=== PATIENT | female | born 1970 | race Caucasian/White ===

== ENCOUNTER 2024-09-12 13:07 | Inpatient (IN) | payer OTHER, SELFPAY ==
[2024-09-12] VITALS (59 sets, daily range): BP systolic 84–135; BP diastolic 38–87; BMI 40.4
[2024-09-12] MEDS: NITROGLYCERIN PREMIX 250 IV (10:19)
[2024-09-12 10:23] LABS: % Basophils 0.7 % (0-2); % Immature Granulocytes 0.4 % (0-0.5); % Monocytes 11.4 % (1.7-9.3); % Neutrophils 63.5 % (42.2-75.2); Absolute Eosinophils 0.2 10^3/uL (0-0.7); Absolute Lymphocytes 0.9 10^3/uL (1.2-3.4); Absolute Monocytes 0.5 10^3/uL (0.1-0.6); Absolute Neutrophils 2.9 10^3/uL (1.4-6.5); Hematocrit 36.2 % (37.0-47.0); Hemoglobin 11.9 g/dL (12.0-16.0); Mean Corp Hgb Conc. 32.9 g/dL (33.0-37.0); Mean Corpuscular Volume 88.3 fL (81.0-99.0); Mean Platelet Volume 10.4 fL (7.4-10.4); Nucleated Red Blood Cells % 0 %; Platelet Count 130 10^3/uL (130-400); Red Cell Dist. Width 14.2 % (11.5-14.5); White Blood Cell Count 4.6 10^3/uL (4.8-10.8)
--- NOTE | 2024-09-12 10:27 | ED.GENMED ---
History of Present Illness
General
Chief Complaint: Chest Pain
Source: patient
Time Seen by Provider: 09/12/24 09:58
History of Present Illness
History of Present Illness:
53-year-old female presents to the emergency room complaining of chest pain. Patient was having a stress test performed in [place] with Dr. Erickson, [facility]. The stress test was ordered because the patient has been having
chest pain which occurs both with exertion and without exertion. Episodes are described as a heaviness or tightness and lasted about 5 minutes. Patient received some sort of injection and waited 45 minutes at which point she began the first stage
of her stress test. During the first stage she began having severe chest pressure. The test was discontinued. Patient was given 4 baby aspirin. 911 was called. Patient also received 3 sublingual nitro en route. She does not believe they helped
her chest pain. She currently rates it a 9-10 out of 10. The pain exists in her center chest and radiates to her neck. She feels short of breath. No nausea. Patient denies any previous cardiac issues. She has a history of A-fib but does not
take any oral anticoagulants.
Phy Exam
Physical Exam
Physical Exam:
General: Awake, Alert, Oriented X3. Appears uncomfortable
Vitals: unremarkable
Head: Atraumatic
Eyes: Pupils equal, EOMI
Throat: Airway intact, no exudates
Neck: Trachea midline
Lungs: Crackles bilateral lower lung field
Heart: Regular rate, no murmurs
Abd: Soft, Nontender, No pulsatile mass
Neuro: Nonfocal
Skin: Warm, dry, no rash
Extremities: pulses equal b/l, trace edema
Scores
Heart Score for Chest Pain Patients
STEMI patient?: No
History: Moderately Suspicious
ECG: Nonspecific Repolarization
Age: >45 - <65 years
Risk Factors: 1 or 2 Risk Factors
Troponin: </= Normal Limit
Heart Score for Chest Pain Patients: 4
Heart Score Risk: 20.3% MACE over next 6 weeks
Course
Orders/Labs/Results
Orders:
Orders
09/12/24
DH LUMASON 5mL Routine
09/12/24 09:56
EKG [Electrocardiogram (*1)] Urgent
Reason for Study: Chest Pain
EKG- Treatment ONCE
09/12/24 10:02
Cardiac Monitoring- Treatment ONCE
IV Insert/Care/Rem.- Treatment PRN
O2 Therapy [RESP] Urgent
Titrate/Wean O2 to maintain O2 sat greater than (%): 90
Special Instructions: Maintain sats >/=90%
Pulse Ox/spot Check [RESP] Urgent
Quantity: 1
Special Instructions: ON ROOM AIR
09/12/24 10:07
Nitroglycerin 100 mg/250 ml [Nitroglycerin Premix] 100 mg in 250 ml .ROUTE .STK-MED
Nitroglycerin Sublingual [Nitrostat (Sublingual)] 0.4 mg .ROUTE .STK-MED ONE
09/12/24 10:10
Complete Blood Count/With Diff Urgent
Comprehensive Metabolic Panel Urgent
NT-proBNP Urgent
Comment: ADD ON TO LABS
Troponin I Urgent
09/12/24 10:12
PT/INR [Prothrombin Time] Urgent
PTT Urgent
09/12/24 10:18
Nitroglycerin 100 mg/250 ml [Nitroglycerin Premix] 100 mg in 250 ml IV NOW
Initial dose in mcg/min, then titrate:: 20
Titrate to keep:: Chest Pain Free
Titrate by mcg/min:: 5 mcg/min, may increase by 10 mcg/min if dose > 20 mcg/min
Frequency of titrations (minutes):: every 3-5 minutes
Maximum dose in mcg/min:: 200
Begin to taper infusion when:: Remained at goal for 2hrs
Taper by mcg/min:: 5 mcg/min
Frequency of taper (minutes) if patient maintains goal:: 30
Taper to off?: Yes
If infusion off & no longer maintaining goal:: Contact Provider
09/12/24 10:19
CR Chest Portable - 1 View Urgent
Comment:
Reason For Exam: chest pain
Reason Study Needs to be Portable: Patient Unstable
09/12/24 10:21
Electrocardiogram (*1) Urgent
Reason for Study: Chest Pain
EKG- Treatment ONCE
09/12/24 10:25
Furosemide [Lasix] 40 mg IV NOW STA
09/12/24 10:26
Add On- LAB Stat
Tests Added?: BNP
09/12/24 10:34
Morphine Sulfate 4 mg IV NOW STA
09/12/24 10:42
Echo 2D MMode Color/Doppler Urgent
Reason for Study: CP
09/12/24 12:37
Morphine Sulfate 4 mg IV NOW STA
09/12/24 12:46
Admit/Transfer Patient As Directed
Co-Sign Provider:
Level of Care: Inpatient admission
Assign to:: IVU
Physician / Group: joseph
Diagnosis: unstable angina
Reason for Hospitalization: unstable angina
Expected length of stay greater than two midnights?: Yes
ELOS- Estimated Length of Stay in days: 2
I certify the patient meets the requirements for IP care: Yes
Code Status As Directed
Resuscitation Status: Full Code
PRN Pain Medication Management As Directed
May give lesser potent ordered pain med per pt: Yes
preference::
Protocol:: Medication orders for pain may be administered in a
manner that supports deferring to patient preference
when the pt is:
- Requesting an ordered lesser potent pain medication.
Least to most potent pain medications are defined
as: acetaminophen < NSAID < tramadol < opioids
(morphine, oxycodone, hydromorphone).
- Requesting a lesser dose of the same medication IF
ORDERED.
- Requesting a less intrusive route of administration
if both routes are prescribed by the provider (PO <
IV).
09/12/24 12:54
Ondansetron Injectable [Zofran] 4 mg .ROUTE .STK-MED ONE
09/12/24 12:56
Ondansetron Injectable [Zofran] 4 mg IV NOW STA
09/12/24 13:05
Troponin I Urgent
Abnormal Lab Results
09/12/24 09/12/24
10:10 10:12
WBC 4.6 L 10^3/uL
(4.8-10.8)
RBC 4.10 L 10^6/uL
(4.20-5.40)
Hgb 11.9 L g/dL
(12.0-16.0)
Hct 36.2 L %
(37.0-47.0)
MCHC 32.9 L g/dL
(33.0-37.0)
Absolute Lymphs (auto) 0.9 L 10^3/uL
(1.2-3.4)
Lymphocytes % 19.0 L %
(20.5-51.1)
Monocytes % 11.4 H %
(1.7-9.3)
PT 14.9 H Sec
(11.4-14.6)
BUN 18 H mg/dl
(7-17)
Glucose 118 H mg/dl
(70-99)
AST 39 H U/L
(14-36)
09/12/24 10:10
09/12/24 10:10
Vital Signs
Initial and Last Documented VS:
Initial Vital Signs
BP
111/82
09/12/24 09:57
Last Documented Vital Signs
Temp Pulse Resp BP Pulse Ox
97.8 F 92 27 100/58 93
09/12/24 10:16 09/12/24 11:32 09/12/24 11:30 09/12/24 11:30 09/12/24 11:25
MDM/Problems Addressed
Differential Diagnosis Includes:
Acute coronary syndrome, pericarditis, congestive heart failure, musculoskeletal pain, dissection
MDM/Problems Addressed:
Patient presents to the emergency room from what sound like an outpatient office at [facility] the patient was having a stress test. During the initial exercise portion the stress test she began to have chest pain. She had no relief with
sublingual nitro. An EKG for the paramedics did not show any acute ischemic changes. Repeat EKGs here remain unchanged. IV nitro infusion initiated. Patient has already received baby aspirin prehospital. Patient also received some morphine for
analgesia. Portable chest x-ray appears to have changes consistent with pulmonary edema. I was able to obtain a CT report from a recent hospital visit at [facility] emergency room where she was evaluated for similar symptoms. CT angiogram of
the chest was obtained at that time which did not show any evidence for PE or dissection. Initial troponin is normal (less than 0.012 ng). Shortly after patient arrived I did contact cardiology given her persistent chest pain. Debra Lujan and
Radha came and evaluated the patient. They ordered a stat echo. I did speak to the patient's manager terminal Dr. Erickson from [facility]. He was not present for the stress test but understands that the patient had no ischemic changes on
the surveillance system monitor during the exercise portion of her test. No images were taken. He believes the patient would benefit from a right and left heart catheterization. I did communicate this as well as Dr. Erickson's cell phone number to the
cardiology team. Patient will be admitted to the hospitalist service. Pain has not been changed with the IV nitro but IV morphine has taken the edge off.
*Radiology
Radiology exam reviewed: preliminary read by ED provider (Pulmonary edema, left pleural effusion)
*Pulse Oximetry
Patient hypoxic: no
*EKG
Interpreted by ED Provider?: Yes
Comparison EKG: no comparison EKG present
Heart Rate: 76
Rate: normal
Rhythm: sinus
[place]: normal axis
Interval: first degree heart block
QRS Pattern: normal QRS
Ischemia: non-specific ST changes
*Flyer Repairer Interpretation
Rate: normal
Interpretation: normal
Rhythm: sinus
*Critical Care Note
Total Time (30-74mins, 75-104mins- exclusive of procedures): 44 min
comment:
Critical care statement: A total of 44 minutes of critical care time was provided for this patient. This includes management of unstable vital signs, evaluation of the patient at bedside, reviewing the patient's pertinent medical records, discussion
with consultants, review of old EKGs and review of pertinent medical records. This time with separate from time utilized to perform the aforementioned documented procedures
ED Attending Note
-
Portions of this chart may have been created with voice recognition software.� Occasional wrong word or��sound alike� substitutions may have occurred due to the inherent limitations of voice recognition software.
Discharge Plan
Departure
Patient Disposition: Admit
Date of Disposition: 09/12/24
Time of Disposition: 12:36
Admit to: IVU
Presentation/result/management discussed w/ accepting MD/DO: Hospitalist
Condition: Serious
Discharge Problem:
Chest pain
Interventions
Interventions:
*Risk Screen - Suicide Last Done: 09/12/24 10:16
*General Assessment Last Done: 09/12/24 10:17
*Neglect/Abuse Screening Last Done: 09/12/24 10:16
*ED- Fall Risk Assessment Last Done: 09/12/24 10:33
*ED COVID-19 Vaccine History Last Done: 09/12/24 10:16
ED- Cardiac Assessment Last Done: 09/12/24 10:15
[2024-09-12] MEDS: LASIX 40 MG IV (10:28)
[2024-09-12 10:36] LABS: ALT (SGPT) 32 U/L (0-35); AST (SGOT) 39 U/L (14-36); Albumin 3.9 g/dl (3.5-5.0); Alkaline Phosphatase 116 U/L (38-126); Blood Urea Nitrogen 18 mg/dl (7-17); Calcium 9.6 mg/dl (8.4-10.2); Carbon Dioxide 30 mmol/L (22-30); Chloride 102 mmol/L (98-107); Estimated Creatinine Clearance 102 ml/min; Glucose 118 mg/dl (70-99); Potassium 4.5 mmol/L (3.5-5.1); Sodium 141 mmol/L (135-145); Total Bilirubin 0.8 mg/dl (0.2-1.3); Total Protein 6.9 g/dl (6.3-8.2); eGFR > 60.00
[2024-09-12 10:40] LABS: INR 1.11; PT 14.9 Sec (11.4-14.6)
[2024-09-12 10:41] LABS: APTT 26.2 Sec (23.4-35.0)
[2024-09-12 10:47] LABS: Troponin I < 0.012 ng/ml
[2024-09-12] MEDS: MORPHINE SULFATE 4 MG IV ×2 (10:48→13:03)
[2024-09-12 11:15] LABS: NT-proBNP 712 pg/ml
--- NOTE | 2024-09-12 11:31 | CON.CAR ---
Addendum entered and electronically signed by J Luis Samuels MD 09/12/24 15:23:
I saw and examined the patient.
The Events Associate's note was reviewed and I agree with the note.
Comment: Briefly, 53-year-old woman who is BIBEMS after developing chest discomfort during an exercise stress test
Patient recently evaluated at [facility] for chest discomfort approximately 1 week ago, ruled out with normal troponin and was discharged home
Followed up with her primary internet marketing manager Dr. Erickson at [facility] and he arranged for exercise stress test which was performed this morning at an outpatient facility
She unfortunately developed 10 out of 10 chest discomfort while on the treadmill and was referred for evaluation in the emergency department
On presentation here she was treated with sublingual as well as IV nitro and IV morphine but was still reporting significant chest discomfort
ECGs here were not overtly ischemic
Troponin was initially undetectable and up trended to 0.025
Transthoracic echocardiogram with normal LV function and no obvious segmental wall motion abnormalities
Agree with continuing medical management with aspirin/statin/beta-shanon
We will arrange for invasive coronary angiography to assess for obstructive coronary disease as a cause of her symptoms
Chest x-ray with likely pleural effusion and low lung volumes. proBNP was not significantly elevated at 712. However it is possible there is a component of CHF contributing to her symptoms. Received IV Lasix x 1
Case discussed with ED attending
Addendum entered and electronically signed by Debra Lujan PA-C 09/12/24 12:09:
Outpatient med list:
Flecainide 50 mg every 12 hours
Vitamin B complex unknown dose daily
Singulair 10 mg daily
Levothyroxine 175 mcg daily
Kirti 180 mg daily
Flonase nasal spray 50 mcg/inhaled spray 1 spray intranasal once a day
Atenolol 50 mg twice daily
Original Note:
Consultation
Consultation Request
Date/Time Consultation Requested: 09/12/24
Date/Time Consultation Performed: 09/12/24
Requesting Provider: Dr. Vera
Performing Provider: Dr. Samuels
Reason for Consultation: Chest pain
Medical History
-
History of Present Illness:
Patient came to [facility] from [facility] with chest pain during stress test and cardiology is consulted for ongoing chest pain. Patient follows with Dr. Erickson at [facility] for h/o Afib. patient reports Afib about once a month and that she takes
flecainide and atenolol, reportedly Afib burden was worse prior to flecainide and so monthly breakthroughs are considered a success for patient. Patient is not chronically on OAC by her choice for h/o anemia. Patient does not recall previous stress
test. Patient started with chest pain, dizziness and SOB a week ago and was evaluated at [facility]. At [facility] the patient had an echo as noted above. Troponin T was 7 with normal being less than 19. D-dimer was markedly elevated, but patient thinks she had
a CT chest that was normal. Patient had MRI brain that was also normal. Patient was d/c'd to home and saw Dr. Erickson yesterday and was set up for exercise mibi today. Patient completed the 1st stage of Jose Enrique protocol and when the speed and incline
started to increase she had chest pain and SOB. Exercise was stopped and no reported ECG changes. Patient was given NTG SL x2 without improvement and 911 was called. EMS brought patient to [facility] and patient was started on Nitro gtt at 20 mcg and is
now up to 40 mcg due to ongoing pain. Patient was given morphine 4 mg IV x1 and felt a cabrales, but no pain relief. ECG without acute ischemic change. Initial Troponin undetectable. CXR concerning for possible acute HF and patient given Lasix 40 mg IV
x1. Ongoing pain 02/05, but able to sit still for echo.
PMH:
Paroxysmal Afib
Chronic flecainide therapy
Not chronically anticoagulated by patient choice
h/o breast cancer with B/L mastectomy and reconstruction followed by radiation and chemotherapy (Taxol and Abraxane) at [facility] 2021
Hyperlipidemia
Hypothyroid
RSD
Past Medical History
Past Medical History: Other (in HPI)
Past Surgical History: Gynecological (B/L mastectomy and reconstruction 01/2022, [place], B/L tubal)
Social History
Tobacco: Non-Smoker
Alcohol: Occasional
Drug: None
Personal:
Living: With Family
Family History
Family History: CAD (father with HOCM) and Cancer (grandfather with rectal cancer)
Allergies / Home Medications
Allergy/AdvReac Type Severity Reaction Status Date / Time
Sulfa (Sulfonamide Allergy Unknown Verified 09/12/24 09:58
Antibiotics)
�Medication �Instructions �Recorded �Confirmed �Type
escitalopram oxalate 20 mg tablet 20 mg PO DAILY 09/12/24 09/12/24 History
(Lexapro)
Review of Systems
-
History Source: Patient
All other systems: Negative unless noted
Physical Exam
Vital Signs
Temp Pulse Resp BP Pulse Ox
97.8 F 75 15 111/65 92
09/12/24 10:16 09/12/24 10:20 09/12/24 10:20 09/12/24 10:20 09/12/24 10:32
GEN: NAD. AAOx3
HEENT: EOMI, MMM, wearing glasses
LUNGS: 1.5 L NC. Bibasilar rales. No wheeze
CV: SR on tele. Reg, S1/S2, no murmur
ABD: soft, BS+, NT, ND
EXT: No clubbing, cyanosis, lesions or edema B/L
NEURO: Gross non-focal
SKIN: Warm, dry and pink. No rash
Lab Results
09/12/24 10:10
09/12/24 10:10
Troponin I < 0.012 ng/ml 09/12/24 10:10
[id number] Pept Cancelled 09/12/24 10:25
Impression / Plan
-
PCP: Dr. Mayuri Hernandez at [facility]
Card: Dr. Erickson at [facility]
Impression:
Chest pain during stress test 09/12/24
Recent admission to [facility] for chest pain, SOB and dizziness 09/02/24
Chest pain
VAZQUEZ
Acute HFpEF
Paroxysmal Afib
Chronic flecainide therapy
Not chronically anticoagulated by patient choice
h/o breast cancer with B/L mastectomy and reconstruction followed by radiation and chemotherapy (Taxol and Abraxane) at [facility] 2021
Hyperlipidemia
Hypothyroid
RSD
FH HOCM
Echo 09/02/24: [facility] study, normal LV size and function, no WMA
Plan:
-Patient came to [facility] from [facility] with chest pain during stress test and cardiology is consulted for ongoing chest pain. Patient follows with Dr. Erickson at [facility] for h/o Afib. patient reports Afib about once a month and that she takes
flecainide and atenolol, reportedly Afib burden was worse prior to flecainide and so monthly breakthroughs are considered a success for patient. Patient is not chronically on OAC by her choice for h/o anemia. Patient does not recall previous stress
test. Patient started with chest pain, dizziness and SOB a week ago and was evaluated at [facility]. At [facility] the patient had an echo as noted above. Troponin T was 7 with normal being less than 19. D-dimer was markedly elevated, but patient thinks she had
a CT chest that was normal. Patient had MRI brain that was also normal. Patient was d/c'd to home and saw Dr. Erickson yesterday and was set up for exercise mibi today. Patient completed the 1st stage of Jose Enrique protocol and when the speed and incline
started to increase she had chest pain and SOB. Exercise was stopped and no reported ECG changes. Patient was given NTG SL x2 without improvement and 911 was called. EMS brought patient to [facility] and patient was started on Nitro gtt at 20 mcg and is
now up to 40 mcg due to ongoing pain. Patient was given morphine 4 mg IV x1 and felt a cabrales, but no pain relief. ECG without acute ischemic change. Initial Troponin undetectable. CXR concerning for possible acute HF and patient given Lasix 40 mg IV
x1. Ongoing pain 02/05, but able to sit still for echo.
-ECG reviewed by me is SR without acute ischemic changes
-Troponin undetectable despite an hour of pain.
-No change in pain with NTG SL then NTG gtt at 40 mcg. No change in pain with morphine 4 mg IV x1.
-Urgent echo ordered by me and result pending. Recent echo under similar circumstances was unremarkable.
-Patient unable to complete stress test. We reviewed that if her symptoms are cardiac then cardiac cath would be a reasonable next step. We talked about cardiac cath procedure and risks vs benefits. We also talked about possible outcomes including
CAD or possibly a finding of no obstructive CAD and that her symptoms are non-cardiac.
-Pending echo will start Heparin gtt
-Start aspirin 81 mg daily 09/13/24. Patient chewed 4 baby aspirin at stress test facility 09/12/24
-Outpatient dose of flecainide 50 mg q 12 hours should be continued
-Outpatient dose of atenolol 50 mg BID should be continued. Of note patient must be on AV ingrid shanon of some sort while taking flecainide. Do not stop atenolol.
-Patient is not on chronic OAC by choice and also that CHADS Vasc is 1.
-Check CVE
-pro-BNP 712 and she is 53, so chapa zone elevation. CXR concerning for CHF though. Patient given Lasix 40 mg IV x1 in the ER and will follow for clinical response.
--- NOTE | 2024-09-12 11:56 | W.CHA2DS2VAS ---
[id number] Score
Score
Age in Years (65=0, 65-74=1, >/=75=2): <65
Sex (Female=+1): Female
Congestive Heart Failure History (Yes=+1): No
Hypertension History (Yes=+1): No
Stroke/TIA/Thromboembolism History (Yes=+2): No
Vascular Disease History (Yes=+1): No
Diabetes Mellitus (Yes=+1): No
Score >/=2 is otherwise an anticoagulation candidate: 1
--- NOTE | 2024-09-12 12:50 | HPS.HSE ---
Addendum entered and electronically signed by Candace Xie MD 09/12/24 17:26:
Patient still with chest pain after catheterization. Nitroglycerin was stopped during procedure. Cardiology thinks noncardiac pain. Added PRN tylenol and morphine and gave dose of protonix.
Addendum entered and electronically signed by Candace Xie MD 09/12/24 13:33:
NPO past midnight.
Addendum entered and electronically signed by Candace Xie MD 09/12/24 13:17:
Echocardiogram unremarkable. Cardiology planning on catheterization tomorrow. No heparin drip unless troponins rise.
Original Note:
Family Physician
-
Family Physician: Mayuri Hernandez
Chief Complaint
-
chest pain
History of Present Illness
53-year-old female past medical history of paroxysmal atrial fibrillation, chronic HFpEF, breast cancer status post bilateral mastectomy with reconstruction followed by radiation/chemotherapy, hyperlipidemia, hypothyroidism, presenting with chest
pain. She was having stress test performed in [place] by Dr. Erickson with [facility] today because she started having chest pain, dizziness and shortness of breath during the procedure. A week ago she developed chest pain,
dizziness and shortness of breath and was evaluated at [facility]. She had an echocardiogram as well as elevated D-dimer. She thinks she had a CT chest that was normal. She also had MRI brain that was normal. She was discharged home and saw Dr. Erickson
yesterday and had an exercise stress test today. During the stress test she developed chest pain shortness of breath. She was given nitroglycerin twice without improvement 911 was called.
Chest pain is described as elephant sitting on her chest rating up to her neck. Associated shortness of breath and dizziness.
Patient follows with Dr. Cross for A-fib for which she is on flecainide and atenolol. She gets breakthrough once a month which is an improvement for her. She is not on anticoagulation due to history of anemia.
She denies any weight gain or lower extremity edema.
She drinks alcohol once a week. She denies smoking.
Her father has hypertrophic obstructive cardiomyopathy.
Medical History
Past Medical History
Past Medical History: Reports Other (paroxysmal atrial fibrillation, chronic HFpEF, breast cancer status post bilateral mastectomy with reconstruction followed by radiation/chemotherapy, hyperlipidemia, hypothyroidism)
Past Surgical History: Reports Other (gastric sleeve, tubal ligation, hysterectomy )
Social History
Tobacco: Non-smoker
Alcohol: Occasional
Drug: None
Family History
Family History: Other (see history )
Allergies / Home Medications
Allergies reflects when Allergies were last updated in [facility].
Home Medications with original date entered in [facility]
Allergy/Medication List:
Allergies
Allergy/AdvReac Type Severity Reaction Status Date / Time
Sulfa (Sulfonamide Allergy Unknown Verified 09/12/24 09:58
Antibiotics)
Home Medications
escitalopram oxalate 20 mg tablet (Lexapro) 20 mg PO DAILY 09/12/24
Review of Systems
-
History Source: Patient
A 12 point ROS was completed and negative except as noted: Yes
Constitutional: Reports No Symptoms
EENT: Reports No Symptoms
Respiratory: Reports See HPI
Cardiac: Reports See HPI
Abdomen/GI: Reports No Symptoms
: Reports No Symptoms
Musculoskeletal: Reports No Symptoms
Skin: Reports No Symptoms
Neurological: Reports No Symptoms
Endocrine: Reports No Symptoms
Hematologic/Lymphatic: Reports No Symptoms
Psych: Reports No Symptoms
Physical Exam
Vital Signs
Vital Signs
Temp Pulse Resp BP Pulse Ox
97.8 F 92 27 100/58 93
09/12/24 10:16 09/12/24 11:32 09/12/24 11:30 09/12/24 11:30 09/12/24 11:25
Physical Exam
General: Well Developed, Well Nourished and No Apparent Distress
HEENT: NormoCephalic, Moist mucous membranes and Atraumatic
Respiratory: Clear
Cardiac: S1/S2 and Regular Rhythm; No Murmur or Rub
GI: Soft, Non Tender, Non Distended and Normal Bowel Sounds; No Organomegaly
Rectal: Deferred by Provider
Musculoskeletal: No Clubbing, No Cyanosis and No Edema
Skin: No Rash
Neuro: Nonfocal/grossly intact
Laboratory Results
-
09/12/24 10:10
09/12/24 10:10
Laboratory Results
PT 14.9 Sec (11.4-14.6) H 09/12/24 10:12
INR 1.11 09/12/24 10:12
APTT 26.2 Sec (23.4-35.0) 09/12/24 10:12
Total Bilirubin 0.8 mg/dl (0.2-1.3) 09/12/24 10:10
AST 39 U/L (14-36) H 09/12/24 10:10
ALT 32 U/L (0-35) 09/12/24 10:10
Alkaline Phosphatase 116 U/L (38-126) 09/12/24 10:10
Troponin I < 0.012 ng/ml 09/12/24 10:10
Impression/Plan
-
IMPRESSION:
PLAN:
# Chest pain possibly unstable angina
- EKG shows sinus rhythm with first-degree AV block
- Troponin negative, continue to trend
-Chest x-ray shows opacification of the left base probable combination of small effusion/adjacent atelectasis/consolidation
-Cardiac BNP of 700
-Patient reportedly had CT PE while in [facility] a week ago due to elevated D-dimer and MRI brain which was negative
-Nitroglycerin drip started and morphine given
- Recent echo unremarkable, urgent echocardiogram pending here
- Check A1c and lipid panel
- Aspirin started
- Heparin drip possibly to be started based on echocardiogram
- Cardiac catheterization being considered, n.p.o. for now
Chronic HFpEF
Family history of hypertrophic obstructive cardiomyopathy in her father
- 40 IV Lasix dose given due to consideration of volume overload on chest x-ray
- Monitor response
Paroxysmal atrial fibrillation
- Continue flecainide
- Continue atenolol
- Not on anticoagulation by choice
Breast cancer status post bilateral mastectomy with reconstruction followed by radiation/chemotherapy
Hyperlipidemia
Hypothyroidism
- Continue levothyroxine
Chronic anemia
- Hemoglobin of 11.9
History of gastric sleeve
Full code
DVT prophylaxis�heparin
Cardiac diet
[2024-09-12] MEDS: ZOFRAN 4 MG IV (13:04)
[2024-09-12 13:54] LABS: Troponin I 0.025 ng/ml
--- NOTE | 2024-09-12 16:45 | ITS.CL.CATH ---
Furniture Maker - Catheterization
Cardiac Catheterization
Procedure Report:
LEFT HEART CATHETERIZATION
Date of Procedure: September 12, 2024
Referring: Dr. J Luis Samuels
PROCEDURES:
1. Left heart catheterization with coronary angiography
INDICATION: Chest pain at rest and during stress study
ACCESS: Right radial artery, 6 Luxembourg[place] sheath
HEMODYNAMICS : (mmHg)
AO (s/d) : 119/78
LV (s/d) : 117/5
LVEDP : 26
CORONARY FINDINGS
DOMINANCE: Right
LEFT MAIN: Normal
LEFT ANTERIOR DESCENDING: The LAD arises normally from the left main running in the anterior intraventricular groove. The LAD has only minor irregularities over its course
CIRCUMFLEX: The circumflex
RIGHT CORONARY ARTERY: The right coronary artery is a dominant vessel that has very mild luminal irregularities over its course.
SEDATION: 32 minutes of procedural sedation was utilized. An independent medical record consultant was present to assist with and help manage the patient's level of consciousness and physiologic status.
RADIATION SUMMARY: Fluoro Time (min): 3.5, Dose (mGy): 387, DAP (Gy.cm2) : 28.1
Closure Device: TR band
CONCLUSIONS
1. Nonobstructive coronary disease
RECOMMENDATIONS
1. Continued medical management. Trend serial troponin levels
Copy to: Dr. Moncho Erickson
--- NOTE | 2024-09-12 17:00 | PTCARENOTE ---
Pt arrived to floor on stretcher from laboratory clerk; Pressure device on R radial intact; + pulses; NSS infusing into RAC; Pt AAO x 3; Pt states she has 8/10 chest pain, but does not appear in any distress; Noted that Pt continues to fall alseep but is
easily awoken. Cards and hospitalist notified of pain - rec'd order for morphine 1mg IV. Oriented to room, call hernandez within reach. Will continue to monitor and assess.
[2024-09-12] MEDS: NSS 1000 IV (17:52)
[2024-09-12] MEDS: SINGULAIR 10 MG PO (17:52)
[2024-09-12] MEDS: PROTONIX 40 MG PO (17:52)
[2024-09-12] MEDS: MORPHINE SULFATE 1 MG IV (17:53)
[2024-09-12 19:13] LABS: Troponin I 0.017 ng/ml
[2024-09-12 19:17] LABS: HDL Cholesterol 60 mg/dl; LDL Cholesterol, Calculated 89 mg/dl; Total Cholesterol 160 mg/dl (50-199); Triglyceride 59 mg/dl (10-149); Very Low Density Lipoprotein 11 mg/dl (0-30)
[2024-09-12] MEDS: TENORMIN 50 MG PO (20:47)
[2024-09-12] MEDS: TAMBOCOR 100 MG PO (20:47)
[2024-09-12] MEDS: HEPARIN 5000 UNITS SC (20:48)
--- NOTE | 2024-09-12 23:32 | PTCARENOTE ---
assumed care of patient at the change of shift. at the bedside. questions answered. SR with a first degree on tele-60s. bp stable. assisted patient oob to the BR-steady/denies any lightheadedness/dizziness. patient appears comfortable and
sleeping intermittently. when asked about pain-patient states 6/10 L chest into Left neck; pressure like pain. states feeling short of breath at times- 'like i cant catch my breath.' 94% on 2L. trialed patient on RA- 88-93%. patient states history
of sleep apnea- does not use her device. shallow breathing. encouraged deep breathing. R radial site CDI/+ pulse. educated patient to inform RN with any changes overnight. call hernandez within reach. makes needs known.
[2024-09-13] VITALS (10 sets, daily range): BP systolic 86–126; BP diastolic 46–81; BMI 38.3
[2024-09-13 00:44] LABS: Troponin I 0.017 ng/ml
[2024-09-13] MEDS: TYLENOL 650 MG PO ×3 (02:52→22:29)
[2024-09-13] MEDS: COLACE 100 MG PO (05:20)
[2024-09-13] MEDS: SYNTHROID 150 MCG PO (05:20)
--- NOTE | 2024-09-13 05:22 | PTCARENOTE ---
patient states feeling better. intermittent chest pressure with breathing- did not need anything pain medication for cp overnight. tylenol given for generalized joint pain- baseline per patient- see JUL. SR on tele 60s. bp stable. ambulating to the
bathroom with no issues.
[2024-09-13 05:32] LABS: % Basophils 0.4 % (0-2); % Eosinophils 3.5 % (0-6); % Immature Granulocytes 0.4 % (0-0.5); % Lymphocytes 17.1 % (20.5-51.1); % Monocytes 13.4 % (1.7-9.3); % Neutrophils 65.2 % (42.2-75.2); Absolute Eosinophils 0.2 10^3/uL (0-0.7); Absolute Lymphocytes 0.8 10^3/uL (1.2-3.4); Absolute Monocytes 0.7 10^3/uL (0.1-0.6); Absolute Neutrophils 3.2 10^3/uL (1.4-6.5); Hematocrit 36.4 % (37.0-47.0); Hemoglobin 11.7 g/dL (12.0-16.0); Mean Corp Hgb Conc. 32.1 g/dL (33.0-37.0); Mean Corpuscular Hgb 28.3 pg (27.0-31.0); Mean Corpuscular Volume 87.9 fL (81.0-99.0); Mean Platelet Volume 10.2 fL (7.4-10.4); Nucleated Red Blood Cells % 0 %; Platelet Count 141 10^3/uL (130-400); Red Blood Cell Count 4.14 10^6/uL (4.20-5.40); Red Cell Dist. Width 14.3 % (11.5-14.5); White Blood Cell Count 4.9 10^3/uL (4.8-10.8)
[2024-09-13 06:00] LABS: Troponin I < 0.012 ng/ml
[2024-09-13 06:07] LABS: ALT (SGPT) 26 U/L (0-35); AST (SGOT) 35 U/L (14-36); Albumin 3.8 g/dl (3.5-5.0); Alkaline Phosphatase 110 U/L (38-126); Blood Urea Nitrogen 18 mg/dl (7-17); Carbon Dioxide 31 mmol/L (22-30); Chloride 100 mmol/L (98-107); Estimated Creatinine Clearance 89 ml/min; Glucose 103 mg/dl (70-99); Potassium 4.4 mmol/L (3.5-5.1); Sodium 140 mmol/L (135-145); Total Protein 6.6 g/dl (6.3-8.2); eGFR > 60.00
--- NOTE | 2024-09-13 08:43 | W.PN.CARDCBS ---
Addendum entered and electronically signed by Kip Hoffmann MD 09/13/24 10:49:
I saw and examined the patient.
The MANAGER VIDEO GAMES or PA's note was reviewed and I agree with the note.
Comment: General: Well developed, well nourished in NAD.
Neck: Supple, no JVD, HJR, carotids +2 B/L, no bruits bilaterally.
Heart: Non displaced PMI, RRR, no murmurs, No S3, S4, no rubs.
Lungs: Clear to auscultation bilaterally, no wheeze, rhonchi, rubs bilaterally,
normal expiratory phase.
Extremities: No clubbing, cyanosis or edema bilaterally.
Neuro: Grossly nonfocal, awake, alert and oriented x3.
Still has chest pain. Not likely cardiac. Check CT to exclude pulm embolism. Has had atrial tachycardia versus atrial flutter. Discussed with primary bargeman at [employer] [facility]. Will increase flecainide to 150 mg p.o. twice daily and start
Eliquis. She will follow-up with outpatient cardiology. Stable cardiology status for discharge today if testing can be done.
Original Note:
Today's Communication / Plan
-
Chest CTA
P.o. Lasix 20 mg daily
Increase flecainide. Follow EKG
Start Eliquis 5 mg twice daily
Discussed with primary bargeman via telephone
Impression / Plan
-
PCP: Dr. Mayuri Hernandez at [facility]
Card: Dr. Erickson at [facility]
Impression:
Chest pain during stress test 09/12/24
Recent admission to [facility] for chest pain, SOB and dizziness 09/02/24
Chest pain
VAZQUEZ
Acute HFpEF
Paroxysmal Afib/typical atrial flutter
Chronic flecainide therapy
Not chronically anticoagulated by patient choice
h/o breast cancer with B/L mastectomy and reconstruction followed by radiation and chemotherapy (Taxol and Abraxane) at [facility] 2021
Hyperlipidemia
Hypothyroid
RSD
FH HOCM
Echo 09/02/24: [facility] [place] study, normal LV size and function, no WMA
ECHO 09/12/24: Technically difficult study, EF 60%, no gross regional wall motion abnormalities, normal RV size and function, no significant valvular pathology
Plan:
- She continues with chest discomfort and dyspnea particularly with exertion
- Status post echo yesterday with normal EF and no significant valvular disease
- Cardiac catheterization with nonobstructive CAD and LVEDP of 26
- Chest x-ray also showed small left pleural effusion. Was given dose of IV Lasix yesterday. Continue to wean supplemental oxygen as able. Will start po lasix 20mg daily
- Noted to be going in and out of atrial flutter with controlled heart rates on review of telemetry overnight. Suspect this is not etiology of her pain however as she presented in sinus rhythm.
- We discussed increasing flecainide to 150 mg every 12 hours and starting anticoagulation with Eliquis 5mg BID at least for short-term given paroxysmal nature of arrhythmia at present. [id number] score of 1-2 given female, HTN
- continue OP atenolol 50mg BID
- Ongoing workup of noncardiac etiologies of chest pain and dyspnea on exertion. Pain is reproducible to some degree with palpation to L upper back area. We will plan for chest CTA today to rule out PE given history of malignancy
- Called and discussed with primary bargeman, Dr. Erickson via telephone who is in agreement with above plan. he states he will likely plan to admit her to [facility] next week for RHC if no etiology of symptoms found.
PREADMIT DATA:
-Patient came to [facility] from [facility] with chest pain during stress test and cardiology is consulted for ongoing chest pain. Patient follows with Dr. Erickson at [facility] for h/o Afib. patient reports Afib about once a month and that she takes
flecainide and atenolol, reportedly Afib burden was worse prior to flecainide and so monthly breakthroughs are considered a success for patient. Patient is not chronically on OAC by her choice for h/o anemia. Patient does not recall previous stress
test. Patient started with chest pain, dizziness and SOB a week ago and was evaluated at [facility]. At [facility] the patient had an echo as noted above. Troponin T was 7 with normal being less than 19. D-dimer was markedly elevated, but patient thinks she had
a CT chest that was normal. Patient had MRI brain that was also normal. Patient was d/c'd to home and saw Dr. Erickson yesterday and was set up for exercise mibi today. Patient completed the 1st stage of Jose Enrique protocol and when the speed and incline
started to increase she had chest pain and SOB. Exercise was stopped and no reported ECG changes. Patient was given NTG SL x2 without improvement and 911 was called. EMS brought patient to [facility] and patient was started on Nitro gtt at 20 mcg and is
now up to 40 mcg due to ongoing pain. Patient was given morphine 4 mg IV x1 and felt a cabrales, but no pain relief. ECG without acute ischemic change. Initial Troponin undetectable. CXR concerning for possible acute HF and patient given Lasix 40 mg IV
x1. Ongoing pain 02/05, but able to sit still for echo.
Progress Note - Brake Lining Maker
Subjective
Date of Service: September 13, 2024
Remains with chest discomfort/back discomfort as well as dyspnea on exertion
Objective
Labs:
09/13/24 05:12
09/13/24 05:12
Labs
Hgb 11.7 g/dL (12.0-16.0) L 09/13/24 05:12
Hct 36.4 % (37.0-47.0) L 09/13/24 05:12
Plt Count 141 10^3/uL (130-400) 09/13/24 05:12
PT 14.9 Sec (11.4-14.6) H 09/12/24 10:12
INR 1.11 09/12/24 10:12
APTT 26.2 Sec (23.4-35.0) 09/12/24 10:12
Sodium 140 mmol/L (135-145) 09/13/24 05:12
Potassium 4.4 mmol/L (3.5-5.1) 09/13/24 05:12
BUN 18 mg/dl (7-17) H 09/13/24 05:12
Creatinine 0.8 mg/dL (0.6-1.0) 09/13/24 05:12
Glucose 103 mg/dl (70-99) H 09/13/24 05:12
Troponins
09/12/24 09/12/24 09/12/24
10:10 13:05 18:37
Troponin I < 0.012 0.025 D 0.017 D
09/13/24 09/13/24
00:10 05:12
Troponin I 0.017 < 0.012 D
Vital Signs and I&O:
Vital Signs
Temp Pulse Resp BP Pulse Ox
98.4 F 65 16 100/55 96
09/13/24 02:50 09/13/24 04:00 09/13/24 02:50 09/13/24 02:51 09/13/24 02:50
Vital Signs
Temp Pulse Resp BP Pulse Ox
98.4 F 65 16 100/55 96
09/13/24 02:50 09/13/24 04:00 09/13/24 02:50 09/13/24 02:51 09/13/24 02:50
Intake & Output
09/11/24 09/12/24 09/13/24 09/14/24
07:59 07:59 07:59 07:59
Intake Total 550 / 550
Output Total 1600 / 1600
Balance -1050 / -1050
Physical Exam
Physical Exam
GEN: No distress, awake, alert, oriented x3. On supplemental oxygen
HEENT: supple, anicteric, mmm, EOMI
LUNGS: CTA bilaterally, no wheezes
CV: Irreg, S1/S2, no murmur
ABD: soft, BS+, NT/ND
EXT: No cyanosis, clubbing, edema
NEURO: Gross non-focal
SKIN: Warm, pink, dry. No rash
[2024-09-13] MEDS: ZOO CHEWS 1 TABLET PO (08:49)
[2024-09-13] MEDS: HEPARIN 5000 UNITS SC (08:49)
[2024-09-13] MEDS: VITAMIN B-12 1000 MCG PO (08:49)
[2024-09-13] MEDS: LOW STRENGTH ASPIRIN 81 MG PO (08:49)
[2024-09-13] MEDS: FEMARA 2.5 MG PO (08:49)
[2024-09-13] MEDS: LEXAPRO 20 MG PO (08:49)
[2024-09-13] MEDS: B COMPLEX w/VITAMIN C 1 CAPLET PO (08:49)
[2024-09-13] MEDS: TENORMIN 50 MG PO ×2 (08:49→19:48)
[2024-09-13] MEDS: TAMBOCOR PO (08:56)
[2024-09-13] MEDS: TAMBOCOR 150 MG PO ×2 (08:59→19:48)
--- NOTE | 2024-09-13 09:15 | PTCARENOTE ---
Pt rang call hernandez w/ complaints of chest pressure. Pt states 'it feels like an elephant is sitting on my chest.' EKG obtained- afib. VSS. Pt sating 95% on 2L O2 SHILA. Olivia HER at bedside and CT chest ordered.
[2024-09-13 09:19] LABS: Glycohemoglobin (HgbA1c) 5.9 % (4.0-5.6)
[2024-09-13] MEDS: ELIQUIS 5 MG PO ×2 (10:03→19:48)
[2024-09-13] MEDS: LASIX 20 MG PO (11:09)
--- NOTE | 2024-09-13 11:33 | CM ---
Addendum entered by Zaria Ortiz 09/13/24 12:39:
Telephone call to her insurance to check on co-pay for Eliquis 5 mg po bid. He co-pay would be $4.80 a month. She is in the Catastrophic stage of her insurances. Placed the one month free coupon in her red discharge folder. Reviewed co-pay for
Eliquis with her. She is agreeable to the co-pay.
Original Note:
Reviewed chart. Met with Mrs Selby to review discharge plans. She states prior to admission she resides with her spouse in a two story home. She states her main bedroom suite is on the first floor. She states prior to admission she was
independent with ambulation and adls. She states she does not have nay DME in the home. She states she has a prescription plan and uses [facility]. She states she has had [facility] in the past and she would be agreeable to [facility] again
if indicated. Medical work-up in progress. The discharge plan is to return home with her spouse when medically stable.
[2024-09-13] MEDS: MORPHINE SULFATE 1 MG IV (11:52)
--- NOTE | 2024-09-13 12:25 | PTCARENOTE ---
Rec'd pt from medical lab technologist. Tele- SB. HR 40-60s. B/l groin w/ fig 8 sutures; c/d/i. Activity restrictions reviewed w/ pt and verbalizes understanding. Assessment completed as documented. Oriented pt to room. Currently in bed; call david w/in reach.
--- NOTE | 2024-09-13 12:31 | W.PN.HOSP.TC ---
Today's Communication/Plan
-
Lasix
Flecainide
Eliquis Tx
Likely discharge in AM
Assessment / Plan
Assessment / Plan
Physical Exam
General: Well Developed, Well Nourished and No Apparent Distress
HEENT: NormoCephalic, Moist mucous membranes and Atraumatic
Respiratory: Clear
Cardiac: S1/S2 and Regular Rhythm; No Murmur or Rub
GI: Soft, Non Tender, Non Distended and Normal Bowel Sounds; No Organomegaly
Rectal: Deferred by Provider
Musculoskeletal: No Clubbing, No Cyanosis and No Edema
Skin: No Rash
Neuro: Nonfocal/grossly intact
# Chest pain with dyspnea
Acute on Chronic HFpEF
ECHO 09/12/24: Technically difficult study, EF 60%, no gross regional wall motion abnormalities, normal RV size and function, no significant valvular pathology
S/P cardiac left heart catheterization: nonobstructive CAD and LVEDP of 26
CTA of chest no PE
- EKG shows sinus rhythm with first-degree AV block
- Troponin negative
-Chest x-ray shows opacification of the left base probable combination of small effusion/adjacent atelectasis/consolidation
-Cardiac BNP of 700
c/w IV Lasix
c/w Nadolol
Monitor weight
# Paroxysmal atrial fibrillation
No palpitation
- Continue atenolol, she was not on anticoagulation by choice
Seen by broadcast operations technician , increased flecainide to 150 mg every 12 hours and starting anticoagulation with Eliquis 5mg BID at least for short-term given paroxysmal nature of arrhythmia at present. [id number] score of 1-2 given female, HTN
# Breast cancer status post bilateral mastectomy with reconstruction followed by radiation/chemotherapy
# Hyperlipidemia
# Hypothyroidism
- Continue levothyroxine
# Chronic anemia
- Hemoglobin of 11.9
# History of gastric sleeve
# Hx of depression
On Lexapro
Full code
DVT prophylaxis�heparin
Cardiac diet
Total time spent to see the patient, examine the patient, review data and lab result, discuss treatment plan with patient, nursing staff around 55 minutes
Anticipated Discharge: 24 - 48 hours
Subjective/Interval History
-
Date of Service: September 13, 2024
No sob
No chest pain
Objective Data
-
Labs:
Laboratory Results
09/13/24
05:12
WBC 4.9
Hgb 11.7 L
Hct 36.4 L
Plt Count 141
Sodium 140
Potassium 4.4
Chloride 100
Carbon Dioxide 31 H
BUN 18 H
Creatinine 0.8
Glucose 103 H
Calcium 9.0
Total Bilirubin 1.0
AST 35
ALT 26
Alkaline Phosphatase 110
Vital Signs:
Vital Signs
Temp Pulse Resp BP Pulse Ox
98.1 F 65 18 100/55 98
09/13/24 11:11 09/13/24 04:00 09/13/24 11:11 09/13/24 02:51 09/13/24 11:11
I&O
09/12/24 09/13/24 09/14/24
06:59 06:59 06:59
Intake Total 550 / 550
Output Total 1500 / 1500 100 / 100
Balance -950 / -950 -100 / -100
[2024-09-13] MEDS: LASIX 20 MG IV (13:46)
[2024-09-13] MEDS: TUMS CHEWABLE TABLET 200 MG PO (14:43)
--- NOTE | 2024-09-13 14:56 | PTCARENOTE ---
Pt c/o indigestion after eating lunch. Yuly ERVIN made aware and orders placed. Calcium carbonate ordered and administered. See MAR.
--- NOTE | 2024-09-13 15:06 | PTCARENOTE ---
Pt c/o heartburn after eating lunch. Yuly ERVIN made aware and orders placed. Calcium carbonate ordered and administered. See MAR.
[2024-09-13] MEDS: SINGULAIR 10 MG PO (17:46)
[2024-09-13] MEDS: BENADRYL 25 MG PO (18:14)
--- NOTE | 2024-09-13 18:18 | PTCARENOTE ---
Pt c/o itchiness where Tegaderm is placed at cath site. Gauze and Tegaderm removed and site is LUZ MARIA. No bleeding/hematoma noted. Skin is slightly red where Tegaderm was placed. Yuly ERVIN made aware and PO Benadryl ordered and administered. See MAR.
--- NOTE | 2024-09-13 20:03 | PTCARENOTE ---
assumed care of patient at the change of shift. AAOx3. patient states feeling better. the only thing that is bothering her at this time is feeling itchy, especially on her right arm. Right AC IV site removed- redness noted around Tegaderm. patient
states 'oh that's better.' Benadryl given at 1814. Right radial site STENCIL CUTTER MACHINE/+ pulse. currently SR on tele 70s. bp stable. independent in the room. at the bedside. answered all questions.
[2024-09-14 05:22] VITALS: BP 122/75
[2024-09-14] MEDS: SYNTHROID 150 MCG PO (06:16)
[2024-09-14] MEDS: COLACE 100 MG PO (06:16)
[2024-09-14 07:00] LABS: Blood Urea Nitrogen 19 mg/dl (7-17); Carbon Dioxide 35 mmol/L (22-30); Chloride 100 mmol/L (98-107); Estimated Creatinine Clearance 99 ml/min; Glucose 105 mg/dl (70-99); Potassium 4.1 mmol/L (3.5-5.1); Sodium 142 mmol/L (135-145); eGFR > 60.00
[2024-09-14 07:48] VITALS: BP 111/66
[2024-09-14] MEDS: ZOO CHEWS 1 TABLET PO (07:48)
[2024-09-14] MEDS: TENORMIN 50 MG PO (07:48)
[2024-09-14] MEDS: FEMARA 2.5 MG PO (07:48)
[2024-09-14] MEDS: B COMPLEX w/VITAMIN C 1 CAPLET PO (07:48)
[2024-09-14] MEDS: LEXAPRO 20 MG PO (07:48)
[2024-09-14] MEDS: TAMBOCOR 150 MG PO (07:48)
[2024-09-14] MEDS: ELIQUIS 5 MG PO (07:48)
[2024-09-14] MEDS: VITAMIN B-12 1000 MCG PO (07:48)
[2024-09-14] MEDS: LOW STRENGTH ASPIRIN 81 MG PO (07:48)
[2024-09-14] MEDS: LASIX 20 MG PO (07:48)
--- NOTE | 2024-09-14 07:58 | W.PN.CARDCBS ---
Addendum entered and electronically signed by David Ewing MD 09/14/24 08:18:
Patient seen and examined
Agree with PA-C note assessment
Agree with PA-C and plan
Sinus rhythm on telemetry this morning with periods of paroxysmal atrial flutter
Cath results reviewed with no significant coronary artery disease
Discussion with her primary lead net software developer yesterday with my primary team regarding adjustment of flecainide
She tells me she is less dyspneic and her pain is much improved
Exam:
Alert and x 3
Nonfocal neurologically
No extremity edema
Lungs are clear to auscultation bilaterally
Cor regular no murmur
Abdomen soft nontender positive bowel sounds
Strength equal
Does not appear in acute distress
PCP: Dr. Mayuri Hernandez at [facility]
Card: Dr. Erickson at [facility]
Impression:
Chest pain during stress test 09/12/24
Recent admission to [facility] for chest pain, SOB and dizziness 09/02/24
Chest pain
VAZQUEZ
Acute HFpEF
Paroxysmal Afib/typical atrial flutter
Chronic flecainide therapy
Not chronically anticoagulated by patient choice
h/o breast cancer with B/L mastectomy and reconstruction followed by radiation and chemotherapy (Taxol and Abraxane) at [facility] 2021
Hyperlipidemia
Hypothyroid
RSD
FH HOCM
Echo 09/02/24: [facility] study, normal LV size and function, no WMA
ECHO 09/12/24: Technically difficult study, EF 60%, no gross regional wall motion abnormalities, normal RV size and function, no significant valvular pathology
Plan:
-Presented w/ chest pain and VAZQUEZ. Feeling much better this morning. No SOB or chest pain. From my perspective she can be considered for discharge if she is able to wean off oxygen
-Echo 09/12 showed preserved EF with no significant valvular disease.
-LHC 09/12 revealed nonobstructive CAD w/ LVEDP of 26.
-CXR noted small L pleural effusion. Will continue PO lasix 20mg daily at discharge and her primary lead net software developer can make the decision regarding long-term use
-CT of chest negative for PE, but did note pulmonary edema and partial calcification of the pericardium w/ no evidence of R heart strain.
-Creat stable at 0.7 with K of 4.1.
-Follow BMP in 1 week as OP
-In and out of atrial flutter this admission. Flecainide increased to 150 mg Q12 H and started on Eliquis 5mg BID for at least short term given paroxysmal nature of arrhythmia currently. She could be considered for alternative rhythm control
therapy such as atrial flutter ablation as an outpatient with Dr. Erickson's evaluation
-Continue atenolol 50mg BID
-Continue evaluation of potential noncardiac etiologies.
-Should continue close follow up with primary lead net software developer Dr. Erickson who may consider admission to [facility] next week for RHC. She was also requesting pulmonary follow-up at [facility] and I will defer to Dr. Erickson with regards to who he would consider for
her evaluation
Original Note:
Today's Communication / Plan
-
Continue higher dose flecainide
Continue Eliquis 5mg BID
Lasix 20mg daily at discharge w/ BMP in 1 week
Follow up w/ Dr. Erickson
Impression / Plan
-
PCP: Dr. Mayuri Hernandez at [facility]
Card: Dr. Erickson at [facility]
Impression:
Chest pain during stress test 09/12/24
Recent admission to [facility] for chest pain, SOB and dizziness 09/02/24
Chest pain
VAZQUEZ
Acute HFpEF
Paroxysmal Afib/typical atrial flutter
Chronic flecainide therapy
Not chronically anticoagulated by patient choice
h/o breast cancer with B/L mastectomy and reconstruction followed by radiation and chemotherapy (Taxol and Abraxane) at [facility] 2021
Hyperlipidemia
Hypothyroid
RSD
FH HOCM
Echo 09/02/24: [facility] study, normal LV size and function, no WMA
ECHO 09/12/24: Technically difficult study, EF 60%, no gross regional wall motion abnormalities, normal RV size and function, no significant valvular pathology
Plan:
-Presented w/ chest pain and VAZQUEZ. Feeling much better this morning. No SOB or chest pain.
-Echo 09/12 showed preserved EF with no significant valvular disease.
-LHC 09/12 revealed nonobstructive CAD w/ LVEDP of 26.
-CXR noted small L pleural effusion. Will continue PO lasix 20mg daily
-CT of chest negative for PE, but did note pulmonary edema and partial calcification of the pericardium w/ no evidence of R heart strain.
-Creat stable at 0.7 with K of 4.1.
-Follow BMP in 1 week as OP
-In and out of atrial flutter this admission. Flecainide increased to 150 mg Q12 H and started on Eliquis 5mg BID for at least short term given paroxysmal nature of arrhythmia currently.
-Continue atenolol 50mg BID
-Continue evaluation of potential noncardiac etiologies.
-Should continue close follow up with primary lead net software developer Dr. Erickson who may consider admission to [facility] next week for RHC.
PREADMIT DATA: -Patient came to [facility] from [facility] with chest pain during stress test and cardiology is consulted for ongoing chest pain. Patient follows with Dr. Erickson at [facility] for h/o Afib. patient reports Afib about once a month and that
she takes flecainide and atenolol, reportedly Afib burden was worse prior to flecainide and so monthly breakthroughs are considered a success for patient. Patient is not chronically on OAC by her choice for h/o anemia. Patient does not recall
previous stress test. Patient started with chest pain, dizziness and SOB a week ago and was evaluated at [facility]. At [facility] the patient had an echo as noted above. Troponin T was 7 with normal being less than 19. D-dimer was markedly elevated, but
patient thinks she had a CT chest that was normal. Patient had MRI brain that was also normal. Patient was d/c'd to home and saw Dr. Erickson yesterday and was set up for exercise mibi today. Patient completed the 1st stage of Jose Enrique protocol and when
the speed and incline started to increase she had chest pain and SOB. Exercise was stopped and no reported ECG changes. Patient was given NTG SL x2 without improvement and 911 was called. EMS brought patient to [facility] and patient was started on Nitro
gtt at 20 mcg and is now up to 40 mcg due to ongoing pain. Patient was given morphine 4 mg IV x1 and felt a cabrales, but no pain relief. ECG without acute ischemic change. Initial Troponin undetectable. CXR concerning for possible acute HF and patient
given Lasix 40 mg IV x1. Ongoing pain 02/05, but able to sit still for echo.
Progress Note - Glass Cutter
Subjective
Date of Service: September 14, 2024
Feeling much better. No chest pain or SOB.
Objective
Labs:
09/13/24 05:12
09/14/24 06:25
Labs
Hgb 11.7 g/dL (12.0-16.0) L 09/13/24 05:12
Hct 36.4 % (37.0-47.0) L 09/13/24 05:12
Plt Count 141 10^3/uL (130-400) 09/13/24 05:12
PT 14.9 Sec (11.4-14.6) H 09/12/24 10:12
INR 1.11 09/12/24 10:12
APTT 26.2 Sec (23.4-35.0) 09/12/24 10:12
Sodium 142 mmol/L (135-145) 09/14/24 06:25
Potassium 4.1 mmol/L (3.5-5.1) 09/14/24 06:25
BUN 19 mg/dl (7-17) H 09/14/24 06:25
Creatinine 0.7 mg/dL (0.6-1.0) 09/14/24 06:25
Glucose 105 mg/dl (70-99) H 09/14/24 06:25
Troponins
09/12/24 09/12/24 09/12/24
10:10 13:05 18:37
Troponin I < 0.012 0.025 D 0.017 D
09/13/24 09/13/24
00:10 05:12
Troponin I 0.017 < 0.012 D
Vital Signs and I&O:
Vital Signs
Temp Pulse Resp BP Pulse Ox
98.1 F 63 16 111/66 96
09/14/24 07:47 09/14/24 07:48 09/14/24 07:47 09/14/24 07:48 09/14/24 07:55
Vital Signs
Temp Pulse Resp BP Pulse Ox
98.1 F 63 16 111/66 96
09/14/24 07:47 09/14/24 07:48 09/14/24 07:47 09/14/24 07:48 09/14/24 07:55
Intake & Output
09/12/24 09/13/24 09/14/24 09/15/24
06:59 06:59 06:59 06:59
Intake Total 550 / 550 250 / 250
Output Total 1500 / 1500 100 / 100
Balance -950 / -950 150 / 150
Physical Exam
Physical Exam
GEN: No distress, awake, alert, oriented x3.
HEENT: supple, anicteric, mmm
LUNGS: CTA b/l, no wheezes
CV: Reg, S1/S2, no murmur
EXT: No cyanosis, clubbing, edema
NEURO: Gross non-focal
SKIN: Warm, pink, dry. No rash
[2024-09-14] MEDS: BENADRYL 25 MG PO (09:41)
--- NOTE | 2024-09-14 10:30 | W.PN.HOSP.TC ---
Today's Communication/Plan
-
dc
Assessment / Plan
Assessment / Plan
Physical Exam
General: Well Developed, Well Nourished and No Apparent Distress
HEENT: NormoCephalic, Moist mucous membranes and Atraumatic
Respiratory: Clear
Cardiac: S1/S2 and Regular Rhythm; No Murmur or Rub
GI: Soft, Non Tender, Non Distended and Normal Bowel Sounds; No Organomegaly
Rectal: Deferred by Provider
Musculoskeletal: No Clubbing, No Cyanosis and No Edema
Skin: No Rash
Neuro: Nonfocal/grossly intact
# Chest pain with dyspnea
Acute on Chronic HFpEF
She is feeling much better, no sob, no hypoxia, will dc on oral LAsix
ECHO 09/12/24: Technically difficult study, EF 60%, no gross regional wall motion abnormalities, normal RV size and function, no significant valvular pathology
S/P cardiac left heart catheterization: nonobstructive CAD and LVEDP of 26
CTA of chest no PE
- EKG shows sinus rhythm with first-degree AV block
- Troponin negative
-Chest x-ray shows opacification of the left base probable combination of small effusion/adjacent atelectasis/consolidation
-Cardiac BNP of 700
s/p IV Lasix
c/w Nadolol
Patient was given prescription to monitor renal function and potassium as outpatient.
# Paroxysmal atrial fibrillation
No palpitation
- Continue atenolol, she was not on anticoagulation by choice
Seen by mechanic's assistant , increased flecainide to 150 mg every 12 hours and starting anticoagulation with Eliquis 5mg BID at least for short-term given paroxysmal nature of arrhythmia at present. [id number] score of 1-2 given female, HTN
Discussed with patient potential side effects of Eliquis, she verbalized understanding agreeable to continue
# Breast cancer status post bilateral mastectomy with reconstruction followed by radiation/chemotherapy
# Hyperlipidemia
# Hypothyroidism
- Continue levothyroxine
# Chronic anemia
- Hemoglobin of 11.9
# History of gastric sleeve
# Hx of depression
On Lexapro
Full code
DVT prophylaxis�heparin
Cardiac diet
Total discharge time spent to see the patient, examine the patient, review data and lab result, discuss discharge plan with patient, nursing staff around 65 minutes
Anticipated Discharge: Today
Subjective/Interval History
-
Date of Service: September 14, 2024
She feels much better, no sob
No chest pain
Feels ready to go home
Objective Data
-
Labs:
Laboratory Results
09/14/24 09/14/24
05:29 06:25
Sodium Cancelled 142
Potassium Cancelled 4.1
Chloride Cancelled 100
Carbon Dioxide Cancelled 35 H
BUN Cancelled 19 H
Creatinine Cancelled 0.7
Glucose Cancelled 105 H
Calcium Cancelled 9.0
Vital Signs:
Vital Signs
Temp Pulse Resp BP Pulse Ox
98.1 F 63 16 111/66 96
09/14/24 07:47 09/14/24 07:48 09/14/24 07:47 09/14/24 07:48 09/14/24 07:55
I&O
09/13/24 09/14/24 09/15/24
06:59 06:59 06:59
Intake Total 550 / 550 250 / 250
Output Total 1500 / 1500 100 / 100
Balance -950 / -950 150 / 150
[2024-09-14] MEDS: TUMS CHEWABLE TABLET 200 MG PO (11:04)
[2024-09-14 11:05] VITALS: BP 111/79
--- NOTE | 2024-09-14 12:12 | PTCARENOTE ---
IV and tele removed. Discharge instructions reviewed w/ pt and verbalizes understanding. Belongings collected and sent home w/ pt. Escorted via WC and staff assist. D/c to home w/ family members.
--- NOTE | 2024-09-14 14:08 | W.DCSUMMARY ---
Discharge Summary
Discharge Data
Date of Admission: 09/12/24
Date of Discharge: 09/14/24
-
Pending Results: No
Hospital Course
53 years old female was admitted with chest pain. Patient with history of exertional shortness of breath with shortness of breath. She was undergoing stress test with cardiology when she started to have worsening chest pain. Test was canceled and
she was sent over to the emergency room by ambulance. Upon arrival, EKG did not have acute ischemic changes and she had negative troponin. She was evaluated by operators teacher. She was given aspirin and nitro then started nitroglycerin drip.
Echocardiogram showed normal left ventricular ejection fraction with no wall motion abnormality. She underwent left heart catheterization that showed no obstructive coronary artery disease. Specialty Sales Consultant adjusted her medication and she was
diagnosed with acute heart failure. She was given diuretic treatment. Flecainide dose was increased to better control her heart rate. Patient had history of atrial fibrillation and she was not on anticoagulation by her choice. Potential benefits
and risk of systemic anticoagulation were discussed with the patient she agreed to take Eliquis. She verbalized understanding to potential side effects. Patient remained hemodynamically stable. She started to feel better after diuretic therapy.
She was given a prescription to repeat basic metabolic panel blood work in 1 week to monitor her kidney function and electrolytes. She did not need oxygen therapy. Patient was discharged in a stable condition
Discharge Plan
-
Patient Disposition: Home (Routine Discharge)
Discharge Diagnosis/Procedures: Cardiac cath
-continue PO lasix 20mg daily at discharge and her primary operators teacher can make the decision regarding long-term use
- Flecainide increased to 150 mg Q12 H and started on Eliquis 5mg BID for at least short term given paroxysmal nature of arrhythmia currently
-Eliquis is a blood thinner and can cause bleeding, avoid falls/trauma.
-Continue atenolol 50mg BID
- Do blood work to monitor your renal function and potassium and follow-up with your primary care doctor
Condition: Good
Diet: As tolerated
Driving Restrictions: No driving for 24 hours
Blood Work: BMI in one week
Stand Alone Forms: DC Instructions- Cath/EP Lab
Referrals:
Mayuri Hernandez DO [Family Provider] - in one to two weeks
Moncho Erickson MD [Non-Admitting Privileges] - in two to four weeks
Prescriptions:
New
flecainide 100 mg Tablet
150 mg PO Q12 Qty: 60 0RF
furosemide 20 mg Tablet
20 mg PO DAILY Qty: 30 0RF
Eliquis 5 mg Tablet
5 mg PO BID Qty: 60 0RF
Continued
escitalopram oxalate [Lexapro] 20 mg Tablet
20 mg PO DAILY
polyethylene glycol 3350 [Miralax] 17 gram Powder In Packet
17 g PO DAILYPRN PRN (Reason: constipation)
Flintstones Multivitamin Tablet,Chewable
1 tab PO DAILY
cyanocobalamin (vitamin B-12) 1,000 mcg Tablet
1,000 mcg PO DAILY
levothyroxine [Synthroid] 150 mcg Tablet
150 mcg PO DAILY
vitamin B complex Tablet
1 tab PO DAILY
montelukast [Singulair] 10 mg Tablet
10 mg PO QPM
letrozole 2.5 mg Tablet
2.5 mg PO DAILY
atenolol 50 mg Tablet
50 mg PO BID
fexofenadine-pseudoephedrine [Kirti-D 24 Hour] 180-240 mg Tablet Extended Release 24 Hr
1 tab PO DAILYPRN PRN (Reason: allergies)
ciclopirox 8 % Solution
1 applic TOPICAL HS
Discontinued
flecainide 100 mg Tablet
100 mg PO Q12H
Discharge Orders:
Discharge Patient (As Directed); Ordered 09/14/24
Ordered By: Jay Emery
Care Plan Goals
Care Plan Goals:
Problem: Readiness for enhanced knowledge related to diagnosis and treatment plan
Goal: Understand your diagnosis and treatment plan needs, including medications if applicable.
Instructions: Know your diagnosis, underlying causes and treatment plan options, including medications if applicable. Consult with your health care team to learn about your diagnosis and treatment plan, including medications if applicable.
Discharge Date and Time
Discharge Date/Time: 09/14/24 12:12
Print Language: LITHUANIAN
== END 2024-09-14 12:12 | disposition home or self-care (01) | DRG 286 ==
LOC: IVU 13:07
PROVIDERS: Internal Medicine Interventional Cardiology; ADMITTING PHYSICIAN Hospitalist; ATTENDING PHYSICIAN Internal Medicine; CONSULT PHYSICIAN Internal Medicine Cardiovascular Disease; EMERGENCY PHYSICIAN Emergency Medicine; FAMILY PHYSICIAN Family Medicine
PROC: 4A023N7 Measurement of Cardiac Sampling and Pressure, Left Heart, Percutaneous Approach (ICD-10-PCS; 2024-09-12)
PROC: B2111ZZ Fluoroscopy of Multiple Coronary Arteries using Low Osmolar Contrast (ICD-10-PCS; 2024-09-12)
DX: I11.0 Hypertensive heart disease with heart failure (principal); I50.33 Acute on chronic diastolic (congestive) heart failure; J98.11 Atelectasis; I48.3 Typical atrial flutter; R07.9 Chest pain, unspecified; I48.0 Paroxysmal atrial fibrillation; I44.0 Atrioventricular block, first degree; F32.A Depression, unspecified; R06.09 Other forms of dyspnea; D64.9 Anemia, unspecified; E03.9 Hypothyroidism, unspecified; E78.5 Hyperlipidemia, unspecified; Z85.3 Personal history of malignant neoplasm of breast; Z79.890 Hormone replacement therapy; Z92.21 Personal history of antineoplastic chemotherapy; Z92.3 Personal history of irradiation; Z90.13 Acquired absence of bilateral breasts and nipples; Z88.2 Allergy status to sulfonamides; Z80.0 Family history of malignant neoplasm of digestive organs; Z82.49 Family history of ischemic heart disease and other diseases of the circulatory system; Z90.710 Acquired absence of both cervix and uterus; Z98.84 Bariatric surgery status; Z98.51 Tubal ligation status
CPT/HCPCS: 71045; 71275; 80048; 80053; 80061; 83036; 83880; 84484; 85025; 85610; 85730; 87070; 93005; 93306; 93458; 96374; 96375; 96376; 99152; 99153; 99291; C1894; Q9950; Q9967